=== PATIENT | female | born 1990 | race African-American/Black ===

== ENCOUNTER 2019-10-07 22:51 | Emergency (ER) | payer OTHER ==
[~2019-10-07] VITALS: Ht 165.1 cm; Wt 63.5 kg
[2019-10-07 23:05] VITALS: BP 116/62
--- NOTE | 2019-10-07 23:05 | NUR ---
ED Nurse Note: Pt walked into ED for c/o severe abdominal pain with sudden onset today. Pt states she was at home and ate food and the pain began shortly after. She denies eating spicy food or anything out of her normal food intake. Pt also reports yellow vomit and feeling nauseous. Pt appears moderately anxious and is moaning and being restless. Pt is otherwise aaox4, breathing is normal and unlabored. No cough, SOB or fever.
--- NOTE | 2019-10-07 23:14 | Emergency Room Report ---
History of Present Illness General Chief Complaint: Abdominal Pain Source: Patient Present Illness HPI This a 29-year-old female with no past medical history. She presents with chief and abdominal pain. Onset was about an hour ago. Pain is diffuse in nature. Pain is 10 out of 10. This occurred after eating some beef. She has nausea and vomiting but no diarrhea. She does smoke marijuana. She had similar symptoms about a month ago during weekend. There was a first time this happened to her. She went to an outside ER and had blood work and CT scan was negative. Symptom resolved. No fever chills. Vomiting is nonbloody nonbilious. Pain is 10 out of 10. Sharp and diffuse in nature. No radiation. Nothing made it better. Nothing made it worse. Allergies: Coded Allergies: No Known Allergies (Unverified , 10/07/19) COVID-19 Screening Contact w/high risk pt: No Recent Travel to affected area: No Experienced COVID-19 symptoms?: No COVID-19 Testing performed [employer]ER: No Patient History Past Medical History: see triage record, old chart reviewed Past Surgical History: none Pertinent Family History: none Social History: Reports: drug use Last Menstrual Period: 10/03/19 Now: No Immunizations: other Reviewed Nursing Documentation: PMH: Agreed; PSxH: Agreed Nursing Documentation-PMH Past Medical History: No History, Except For Hx Asthma: Yes Review of Systems Eye: Denies: eye pain, blurred vision ENT: Denies: ear pain, nose congestion, throat swelling Respiratory: Denies: cough, shortness of breath Cardiovascular: Denies: chest pain, palpitations Gastrointestinal: Reports: abdominal pain, nausea, vomiting; Denies: diarrhea Musculoskeletal: Denies: back pain, joint pain Skin: Denies: rash Neurological: Denies: headache, numbness Endocrine: Denies: increased thirst, increased urine Hematologic/Lymphatic: Denies: easy bruising All Other Systems: negative except mentioned in HPI Physical Exam Vital Signs Date Time Temp Pulse Resp B/P (MAP) Pulse Ox O2 Delivery O2 Flow Rate FiO2 10/07/19 22:55 98.8 87 18 116/62 (80) 96 Room Air Vitals normal Sp02 EP Interpretation: reviewed, normal General Appearance: well appearing, no apparent distress, alert Head: normocephalic, atraumatic Eyes: bilateral eye PERRL, bilateral eye EOMI ENT: hearing grossly normal, normal pharynx Neck: full range of motion, supple, no meningismus Respiratory: chest non-tender, lungs clear, normal breath sounds Cardiovascular #1: regular rate, rhythm, no murmur Gastrointestinal: no mass, no organomegaly, no bruit, non-distended, tenderness - Diffuse, decreased bowel sounds Musculoskeletal: back normal, normal range of motion, gait/station normal Psychiatric: mood/affect normal Medical Decision Making Diagnostic Impression: Primary Impression: Abdominal pain Qualified Codes: R10.84 - Generalized abdominal pain ER Course Patient presents with abdominal pain with nausea and vomiting. 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 No evidence any obstruction. No evidence of any acute abdomen. She is asymptomatic now. Tolerating p.o. intake. Will discharge home. CT/MRI/US Diagnostic Results CT/MRI/US Diagnostic Results : Imaging Test Ordered: CT abdomen pelvis Impression Negative per radiologist Last Vital Signs Date Time Temp Pulse Resp B/P (MAP) Pulse Ox O2 Delivery O2 Flow Rate FiO2 10/07/19 22:55 98.8 87 18 116/62 (80) 96 Room Air Status: improved Disposition: HOME, SELF-CARE Condition: Stable Scripts Ondansetron (Zofran) 4 Mg Tablet 4 MG ORAL Q6H PRN for Nausea & Vomiting, #10 TAB 0 Refills Prov: Sj Jackson MD 10/08/19 Hydrocodone/Acetaminophen 5-325* (HYDROCODONE/ACETAMINOPHEN 5-325*) 1 Each Tablet 1 TAB ORAL Q6H PRN for For Pain, #10 TAB 0 Refills Prov: Sj Jackson MD 10/08/19 Patient Instructions: Abdominal Pain, Adult Additional Instructions: Follow-up with your doctor in 5 to 7 days. You may need referral to see a glove presser. Stop using marijuana. Your vomiting may be induced from the marijuana use. Return if worse. Sj Jackson MD Oct 07, 2019 23:14
[2019-10-07] MEDS ORDERED: Metoclopramide 10mg/2ml Inj IVP ONE (23:15)
[2019-10-07] MEDS ORDERED: HYDROmorphone 1mg/ml Carpuject IVP ONE (23:15)
[2019-10-07 23:21] LABS: HEMATOCRIT 41.2 % (37.0-47.0); HEMOGLOBIN 13.8 G/DL (12.0-16.0); MEAN CORPUSCULAR VOLUME 96 FL (80-99); PLATELET COUNT 256 K/UL (150-450); RED BLOOD COUNT 4.27 M/UL (4.20-5.40); RED CELL DISTRIBUTION WIDTH 12.9 % (11.6-14.8); WHITE BLOOD COUNT 15.9 K/UL (4.8-10.8)
[2019-10-07 23:36] LABS: APPEARANCE,URINE CLEAR; BILIRUBIN, URINE NEGATIVE (NEGATIVE); GLUCOSE, URINE (UA) NEGATIVE (NEGATIVE); KETONES,URINE 3+ (NEGATIVE); LEUKOCYTE ESTERASE ,URINE 1+ (NEGATIVE); NITRITE,URINE NEGATIVE (NEGATIVE); PH,URINE 7 (4.5-8.0); PROTEIN,URINE 2+ (NEGATIVE); UROBILINOGEN,URINE NORMAL MG/DL (0.0-1.0)
[2019-10-07 23:36] LABS: ANION GAP 14 mmol/L (5-15); BLOOD UREA NITROGEN 11 mg/dL (7-18); CALCIUM 8.9 MG/DL (8.5-10.1); CARBON DIOXIDE 24 MMOL/L (21-32); CHLORIDE 103 MMOL/L (98-107); CREATININE 0.9 MG/DL (0.55-1.30); POTASSIUM 3.7 MMOL/L (3.5-5.1); SODIUM 141 MMOL/L (136-145)
[2019-10-07 23:37] LABS: COLOR,URINE YELLOW
[2019-10-07 23:41] LABS: ALANINE AMINOTRANSFERASE 23 U/L (12-78); ALBUMIN 4.1 G/DL (3.4-5.0); ALBUMIN/GLOBULIN RATIO 1.2 (1.0-2.7); ALKALINE PHOSPHATASE 62 U/L (46-116); ASPARTATE AMINO TRANSFERASE 30 U/L (15-37); BILIRUBIN,TOTAL 0.7 MG/DL (0.2-1.0)
--- NOTE | 2019-10-08 | NUR ---
ED Nurse Note: Pt states pain has resolved and "feels much better".
--- NOTE | 2019-10-08 00:51 | Diagnostic Imaging Report ---
EXAM: CT Abdomen and Pelvis Without Intravenous Contrast CLINICAL HISTORY: ABD PAIN TECHNIQUE: Axial computed tomography images of the abdomen and pelvis without intravenous contrast. CTDI is 4 mGy and DLP is 256 mGy-cm. One or more of the following dose reduction techniques were used: automated exposure control, adjustment of the mA and/or kV according to patient size, use of iterative reconstruction technique. COMPARISON: No relevant prior studies available. FINDINGS: Lung bases: Unremarkable. ABDOMEN: Liver: Unremarkable. Gallbladder and bile ducts: Unremarkable. No calcified stones. Pancreas: Unremarkable. Spleen: Unremarkable. Adrenals: Unremarkable. Kidneys and ureters: Unremarkable. No hydronephrosis. Stomach and bowel: Mildly thickened bowel which may be underdistention versus enteritis. Moderate colonic stool/air which may be ileus/constipation. No mechanical bowel obstruction. No diverticulitis. PELVIS: Appendix: No findings to suggest acute appendicitis. Bladder: Unremarkable. Reproductive: Unremarkable as visualized. ABDOMEN and PELVIS: Intraperitoneal space: No free air. Bones/joints: No acute fracture. Soft tissues: Unremarkable. Vasculature: Unremarkable. Lymph nodes: Unremarkable. IMPRESSION: Mildly thickened bowel which may be underdistention versus enteritis. Moderate colonic stool/air which may be ileus/constipation. No mechanical bowel obstruction. No diverticulitis.
[2019-10-08] MEDS ORDERED: ZOFRAN4 MG ORAL (01:04)
[2019-10-08] MEDS ORDERED: HYDROCODON-ACE1 EA15 ORAL (01:04)
[2019-10-08 01:10] VITALS: BP 115/72
--- NOTE | 2019-10-08 01:10 | NUR ---
ER DISCHARGE NOTE: Patient is cleared to be discharged per ERMD, pt is aox4, on room air, with stable vital signs. pt was given dc and prescription instructions, pt was able to verbalize understanding, pt id band and iv site removed without complications. pt is able to ambulate with steady gait. pt took all belongings.
== END 2019-10-08 01:10 | disposition home or self-care (01) ==
LOC: EMR 23:04
DX: R10.84 Generalized abdominal pain (principal); R11.0 Nausea; F12.90 Cannabis use, unspecified, uncomplicated
CPT/HCPCS: 36415; 74176; 80053; 81003; 81025; 83690; 84703; 85025; 96361; 96374; 96375; J1170; J2765; J7030; Z7502; 99284